=== PATIENT | female | born 1995 | race Caucasian/White ===

== ENCOUNTER 2018-08-08 08:00 | Inpatient (IN) ==
[2018-08-08] MEDS ORDERED: Metoclopramide 10 MG/2 ML VIAL IVP PRN (08:32)
[2018-08-08] MEDS ORDERED: Ondansetron 4 MG/2 ML VIAL IVP PRN (08:32)
[2018-08-08] MEDS ORDERED: Famotidine 20 MG/2 ML VIAL IVP PRN (08:32)
[2018-08-08] MEDS ORDERED: Naloxone 0.4 MG/ML INJ IVP PRN (08:32)
[2018-08-08] MEDS ORDERED: Ringers Solution, Lactated 1,000 ML IVC SCH (08:45)
[2018-08-08] MEDS ORDERED: Penicillin G Potassium 5,000,000 UNIT in 0.9 % Sodium Chloride Mini Bag 100 ML IVPB ONE (09:03)
[2018-08-08 09:19] LABS: Basophils % 0.1 %; Eosinophils # 0.1 K/mcL (0.0-0.6); Eosinophils % 1.5 %; Hematocrit 38.8 % (35.3-44.9); Hemoglobin 13.2 g/dL (11.5-15.4); Immature Granulocytes % 0.4 % (0-4); Lymphocytes # 1.9 K/mcL (0.6-4.6); Lymphocytes % 24.2 %; Mean Corpuscular Hemoglobin 32.4 pg (28.0-33.3); Mean Corpuscular Volume 95.1 fL (83.0-100.0); Mean Platelet Volume 11.9 fL (9.4-12.4); Monocytes # 0.5 K/mcL (0.0-1.3); Monocytes % 6.9 %; Neutrophils # 5.3 K/mcL (1.6-8.9); Platelet Count 195 K/mcL (140-400); Red Blood Count 4.08 M/mcL (3.82-4.97); Red Cell Distribution Width 12.4 % (11.5-14.5); Segmented Neutrophils % 66.9 %
--- NOTE | 2018-08-08 09:56 | OB/GYN History & Physical ---
Date of Encounter: 08/08/18 Time of Encounter: 09:54 Assessment and Plan (1) 40 weeks gestation of Current visit: Yes Status: Acute Admitted for induction of labor. (2) Group beta Strep positive Current visit: Yes Status: Acute PCN prophylaxis throughout labor (3) Smoking (tobacco) complicating , third trimester Current visit: Yes Status: Acute Offer cessation materials (4) NST (non-stress test) reactive Current visit: Yes Status: Acute FHR 130 bpm, moderate variability, +15x15 accels, no decels. History of Present Illness Chief complaint: Induction of labor at 40.4 weeks HPI: Ms. Collazo is a 22 year old female patient of the [facility] at 40w4d who presents today for induction of labor. She reports good movement, denies fluid leakage and bleeding. Plan of care discussed with patient and she agrees with PO Cytotec and possible de leon bulb induction. Blood type O+ GBS positive Varicella Non-Immune Rubella Immune T. Pall negative Past Med Surg Social Fam HX - Past Medical History Source: patient Medical history: no medical history Psychiatric history: anxiety - Past Surgical History Surgical History: other Additional surgical history: [place] teeth - Social History Smoking Status: Current every day smoker Packs per day: 0.5 Smokeless Tobacco Status: No Alcohol use: none Drug use: none Current living situation: Home - Independent Activity Level: Independent ambulation Recent Out of Country Travel Within the Last 8 Weeks: No Exposure or Possible Exposure to Illness During Travel: No - Family History Father Hx Family Genitourinary Disorders: Yes Obstetrical History - Pregnancies : 2 Para: 0 Term: 0 : 0 Ab's: 1 Livin Medications and Allergies Pepcid 10 mg PO DAILY 08/08/18 [History] Vitamins 1 tab PO DAILY 08/08/18 [History] Allergy/AdvReac Type Severity Reaction Status Date / Time No Known Allergies Allergy Verified 09/22/15 14:35 Exam - Constitutional Constitutional: well developed, well nourished, no acute distress - Neck Neck exam: full ROM - Lungs Respiratory exam: CTAB - Cardiovascular Cardiovascular exam: RRR, +S1, +S2 - Abdomen Abdomen: Present: bowel sounds normal, gravid, non tender - Extremities Extremities exam: full ROM, normal capillary refill, normal inspection, warm Deep Tendon Reflex Grade: 1+ Diminished - Cervix Dilation: 1 (1-2 per RN exam) Effacement: 80 Station: -2 - Uterus Uterus exam: Present: normal size Results Result Diagrams: 08/08/18 08:36 All other labs normal. - VTE Reasons for not Prescribing Prophylaxis: Treatment not Indicated - Low risk for VTE
[2018-08-08] MEDS ORDERED: miSOPROStol 25 MCG TABLET PO SCH (10:00)
[2018-08-08 11:08] LABS: Amphetamine Screen,Urine Negative ng/mL (Cutoff=1000); Barbiturate Screen,Urine Negative ng/mL (Cutoff=200); Benzodiazepines Screen,Urine Negative ng/mL (Cutoff=200); Cannabinoid Screen,Urine Negative ng/mL (Cutoff = 50); Cocaine Screen,Urine Negative ng/mL (Cutoff= 300); Opiate Screen,Urine Negative ng/mL (Cutoff=300); Phencyclidine Screen,Urine Negative ng/mL (Cutoff=25)
--- NOTE | 2018-08-08 11:25 | Anesthesia Evaluation PreOp ---
Date of Encounter: 08/08/18 Time of Encounter: 10:37 - Past History Planned Operation: [facility] Cardiac History: Denies any Significant Hx Pulmonary History: Smoker (1/2 pack per day) STATE TROOPER History: Denies Any Significant HX Other Medical History: Denies Any Significant HX Anesthesia History: No Prior Anesthetic Complications, Past Anesthesia (wisdom teeth) : Yes (40.4 weeks, ) Alcohol Use: none Drug use: none Medications and Allergies Pepcid 10 mg PO DAILY 08/08/18 [History] Vitamins 1 tab PO DAILY 08/08/18 [History] Allergy/AdvReac Type Severity Reaction Status Date / Time No Known Allergies Allergy Verified 09/22/15 14:35 - Meds/Allergy Pre-op Review Medications Reviewed: Yes Allergies Reviewed: Yes Beta Blockers on Current Med List: No Anesthesia Results - Labs 08/08/18 08:36 Anesthesia Exam O2 Sat Height 1.7 m Weight 110 kg bp 120/75 hr 80 Height: 67 Weight: 110 - HEENT Pupil (Motor): Pupils equal Mallampati: III Teeth: Normal Oral Opening: Greater than 3 (FROM) - STATE TROOPER LOC: Oriented STATE TROOPER Motor: Normal RUE, Normal LUE, Normal RLE, Normal LLE, Normal Face STATE TROOPER Sensory: Normal: RUE, LUE, RLE, LLE, Face - Cardiac Rhythm: Regular Murmur: None JVD: No Carotid Bruit: No - Pulmonary Breath Sounds: bilateral Clear Respiratory Effort: Symmetrical Anesthesia Assess/Plan ASA Score: 2 Modified [place] Scale for Level of Consciousness: Cooperative, oriented, and tranquil Anesthetic Plan: Regional Autologous Blood: No Monitoring Plan: Standard Monitors
--- NOTE | 2018-08-08 12:05 | OB Labor Progress Note ---
Date of Encounter: 08/08/18 Time of Encounter: 12:03 Labor Progress Note - Subjective Subjective: Patient resting in bed with minimal discomfort after Cytotec was given. Denies need for pain medication at this time. She is agreeable to placement of de leon bulb for induction. - Cervix Cervix: 1.5/80/-2 - Heart Tones Heart Tones: FHR 145 bpm, moderate variability, +15x15 accels, no decels. - [place]: Irregular ctx. - Interventions Interventions: SVE De Leon bulb placed, balloon filled with 50 mL sterile water. Patient tolerated with minimal discomfort. - Plan Plan: Continue induction as discussed with patient. Continue GBS prophylaxis AROM when appropriate Anticipate
[2018-08-08] MEDS: *HR* Nalbuphine 10 MG/ML AMPUL IVP PRN ×2 (13:31→16:59)
[2018-08-08] MEDS ORDERED: Oxytocin 20 units/ LR 1000 mL 20 UNIT/1,000 ML BAG IVC ONE (14:29)
[2018-08-08] MEDS ORDERED: Oxytocin 20 units/ LR 1000 mL 20 UNIT/1,000 ML BAG IVC SCH (14:30)
[2018-08-08] MEDS: Penicillin G Potassium 2,500,000 UNIT in 0.9 % Sodium Chloride 100 ML IVPB SCH ×2 (15:10→18:49)
--- NOTE | 2018-08-08 16:13 | OB Labor Progress Note ---
Date of Encounter: 08/08/18 Time of Encounter: 16:11 Labor Progress Note - Subjective Subjective: Patient coping well with contractions. Denies need for additional pain medication at this time. Aware she can have one more dose of Nubain. - Cervix Cervix: 5/90/-1 - Heart Tones Heart Tones: FHR 120 bpm, moderate variability, +15x15 accels, no decels. - [place]: 2-3 minutes - Interventions Interventions: SVE AROM for moderate amount of blood tinged fluid. - Plan Plan: Continue labor induction. Increase Pitocin as needed. Anticipate
--- NOTE | 2018-08-08 17:22 | OB Labor Progress Note ---
Date of Encounter: 08/08/18 Time of Encounter: 17:20 Labor Progress Note - Subjective Subjective: Patient coping well with contractions. Has now received her second dose of Nubain. - Cervix Cervix: 5/90/-1 - Heart Tones Heart Tones: FHR 120 bpm, moderate variability, no decels, no accels in the past 20 minutes. - [place] Dawn: 2-3 minutes - Interventions Interventions: SVE IUPC placed for accurate contraction monitoring. - Plan Plan: Continue increasing as needed. Current Pitocin at 4mu/min Anticipate Epidural if patient desires.
[2018-08-08] MEDS ORDERED: *HR* FentaNYL (PF) 100 MCG/2 ML VIAL ONE (17:26)
[2018-08-08] MEDS ORDERED: Lidocaine -MPF 1% 5 ML AMPUL ONE (17:26)
[2018-08-08] MEDS ORDERED: Bupivacaine-MPF 0.25% 10 ML VIAL ONE (17:26)
[2018-08-08] MEDS ORDERED: Epidural Premix (fent/bupiv) 110 ML EP ONE (17:51)
[2018-08-08] MEDS ORDERED: EPHEDrine 50 MG/ML VIAL IVP PRN (17:58)
[2018-08-08] MEDS ORDERED: Bupivacaine-MPF 0.25% 10 ML VIAL EP ONE (17:58)
[2018-08-08] MEDS ORDERED: *HR* FentaNYL (PF) 100 MCG/2 ML VIAL EP ONE (17:58)
[2018-08-08] MEDS ORDERED: Epidural Premix (fent/bupiv) 110 ML EP SCH (18:00)
--- NOTE | 2018-08-08 18:05 | Anesthesia Procedures ---
Date of Encounter: 08/08/18 Time of Encounter: 17:30 (Procedure end at 1805) Procedures: Anesthesia - Epidural/Spinal Patient ID/Chart reviewed: Yes Patient examined: Yes OB Eval: Gestational age: 40 OB Eval: : 2 OB Eval: Hx Para: 0 OB Eval: Contractions: Non-stressed pattern Consent Obtained: Yes Supplemental Oxygen: None/Room Air Supplemental Oxygen Rate (L/min): 2 Site Prep: Aseptic Technique Patient position: upright Local Anesthetic: Lidocaine 1% Amount of Local Anesthetic used: 3 Touhy Needle Gauge: 18 Touhy Needle Depth (cm): 7 Catheter Depth at Skin (cm): 12 Test Dose (1.5% Lido + Epi): Volume given (mls): 3 Test Dose Result: Negative Loading Dose: 0.25% Marcaine (mls): 6 Loading Dose: Fentanyl (mcg): 100 Loading Dose Administered: Thru Touhy Needle Infusion Med: 0.125% Bupivacaine w/ 2 mcg/ml Fentanyl Catheter Secured in Place: Tegaderm Interspace Used: L3-L4 Loss of Resistance (CHAKA): Yes Blood: No CSF: No Paresthesia: No
--- NOTE | 2018-08-08 21:25 | OB Labor Progress Note ---
Date of Encounter: 08/08/18 Time of Encounter: 20:24 Labor Progress Note - Subjective Subjective: Patient resting comfortably after epidural. Denies pain with contractions. - Cervix Cervix: 5.5/90/-2 - Heart Tones Heart Tones: FHR 110 bpm, moderate variability, +15x15 accels, no decels. - [place]: 2-3 minutes. MVU 150 - Interventions Interventions: SVE Position change frequently on peanut ball. - Plan Plan: Continue labor management Continue frequent position changes. Increase Pitocin to achieve MVU >200 Anticipate
[2018-08-08] MEDS ORDERED: Famotidine 20 MG/2 ML VIAL IVP ONE (21:56)
--- NOTE | 2018-08-09 00:40 | OB/GYN Procedure Note ---
Delivery - Delivery Date: 08/09/18 Provider: Luz Tavarez (Dr. Johnson in room for proctoring) Intrapartum events: none Delivery induction: de leon, misoprostol Delivery augmentation: rupture of membranes, pitocin Delivery monitor: external FHT, internal uterine Anesthesia: epidural Quantitated Blood Loss: 100 - Infant (s) A Infant Delivery Date: 08/09/18 Delivery Time: 00:16 Presentation: vertex Position: OA Route of delivery: Gender: Male Viability: Viable Weight Gram: 3180 kg at 1 minute: 8 at 5 mins: 8 Shoulder Dystocia: not encountered Specimens collected: cord blood Placenta: spontaneous Cord: 3 umbilical vessels - Repair Episiotomy: none Laceration Description: Labial, Superficial - Complications Delivery complications: none Delivery comments: Called to room for patient with increased pressure and wanting to push. Under maternal effort, spontaneous delivery of viable male infant weighing 3180 grams, apgars 8 & 8 at 1 and 5 minutes respectively. placed on maternal abdomen, cord clamped and cut by FOB after pulsation ceased. Spontaneous delivery of intact placenta, EBL 100 mL. Right labial and superficial lacerations noted to be hemostatic and not repaired. Mother and infant in kangaroo care for [address] Johnson present for entirety of delivery for proctoring. - Disposition Mom disposition: stable in LDR disposition: stable in LDR - Comments Comments: I was gowned and gloved for the procedure noted above for proctoring. Aura Johnson DO
[2018-08-09] MEDS ORDERED: Benzocaine/Menthol 56 GM AEROSOL SPRAY TP PRN (02:50)
[2018-08-09] MEDS ORDERED: Lanolin 7 G OINT...G. TP PRN (02:50)
[2018-08-09] MEDS ORDERED: Oxytocin 20 units/ LR 1000 mL 20 UNIT/1,000 ML BAG IVC SCH (02:50)
[2018-08-09] MEDS ORDERED: Acetaminophen 325 MG TABLET PO PRN (02:50)
[2018-08-09] MEDS ORDERED: Measles/Mumps/Rubella Vacc 0.5 ML VIAL SQ PRN (02:50)
[2018-08-09] MEDS: Prenatal Vit/FA 1 EACH TABLET PO SCH (08:01)
[2018-08-09] MEDS: Ibuprofen 600 MG TABLET PO PRN ×2 (08:01→16:10)
[2018-08-10] MEDS: Prenatal Vit/FA 1 EACH TABLET PO SCH (07:50)
[2018-08-10] MEDS: Ibuprofen 600 MG TABLET PO PRN (07:50)
--- NOTE | 2018-08-10 10:52 | OB/GYN Progress Note ---
Date of Encounter: 08/10/18 Time of Encounter: 09:55 - Assessment and Plan (1) Vaginal delivery Current Visit: Yes Status: Acute Meeting all day 1 milestones consult today Social work consult today Continue routine care Anticipate discharge home tomorrow Subjective - Subjective Principal diagnosis: s/p Interval history: Feeling well. OOB without dizziness. +perineal discomfort - using ice pack. Cramping minimal, using ibuprofen. Has been bottle feeding, would like to try breast-feeding today. Voiding without difficulty. Passing flatus, no BM yet. Tolerating regular diet. She does report excessive stress related to her social situation. She states that the baby's father and her fiance are not the same person and they are causing her to feel uncomfortable. She is very tearful during our interview. Patient reports: appetite normal, voiding normally, pain well controlled, ambulating normally [place]: doing well, bottle feeding Objective - Latest Vital Signs Latest vital signs: Vital Signs Temp Pulse Pulse Resp BP Pulse Ox 08/10/18 08:05 98.1 F 67 16 118/79 98 08/09/18 20:15 98.1 F 75 16 117/72 97 08/09/18 16:25 97.8 F 74 74 16 118/74 98 Intake and Output 08/09/18 08/10/18 08/10/18 23:59 07:59 15:59 Intake Total 360 / 360 Output Total 1825 / 1825 Balance -1465 / -1465 Intake: Oral 360 / 360 Output: Urine 1825 / 1825 - Exam Lungs: bilateral: normal Chest: Normal S1, Normal S2 Extremities: Present: normal Abdomen: Present: normal appearance, soft Uterus: Present: normal, firm Uterus Position: 1 Finger Below Umbilicus, Midline
[2018-08-11 08:58] VITALS: BP 136/87
--- NOTE | 2018-08-11 10:14 | Discharge Summary ---
Date of Encounter: 08/11/18 Time of Encounter: 10:14 - Discharge Diagnosis (1) Vaginal delivery Priority: Primary Status: Acute Comments: Status post vaginal delivery day 1. Doing well and meeting milestones Lochia light Good appetite voiding and stooling Pain is currently controlled Mood is labile, currently teary eyed. Denies suicidal ideation or homicidal ideation. Admits to anxiety. Awaiting social work recs. No issues Discussed safe spacing and control She will follow up in 4 weeks Discharge home today pending social work consult - Discharge Medications Prescriptions: RX: Acetaminophen [Tylenol] 650 mg PO Q6HR PRN #30 tablet PRN Reason: Mild Pain RX: Ibuprofen [Motrin] 600 mg PO Q6HR PRN #30 tablet PRN Reason: Cramping RX: Docusate [Colace] 100 mg PO BID #30 capsule RX: Ferrous Sulfate 325 mg PO DAILY #90 tablet Home Medications: Pepcid 10 mg PO DAILY 08/08/18 [History] Vitamins 1 tab PO DAILY 08/08/18 [History] RX: Acetaminophen [Tylenol] 650 mg PO Q6HR PRN #30 tablet 08/11/18 [Rx] RX: Benzocaine/Menthol [place] [Dermoplast [place]] 1 appl TP QID PRN #0 aerosol 08/11/18 [Rx] RX: Docusate [Colace] 100 mg PO BID #30 capsule 08/11/18 [Rx] RX: Ferrous Sulfate 325 mg PO DAILY #90 tablet 08/11/18 [Rx] RX: Ibuprofen [Motrin] 600 mg PO Q6HR PRN #30 tablet 08/11/18 [Rx] RX: Lanolin [Lansinoh] 1 appl TP TID PRN oint...g. 08/11/18 [Rx] Allergies/Adverse Reactions: Allergy/AdvReac Type Severity Reaction Status Date / Time No Known Allergies Allergy Verified 09/22/15 14:35 Data Procedures and tests throughout hospitalization: Laboratory Tests 08/08/18 08/08/18 08/08/18 08:36 08:36 08:50 WBC 7.9 RBC 4.08 Hgb 13.2 Hct 38.8 MCV 95.1 MCH 32.4 MCHC 34.0 RDW 12.4 Plt Count 195 MPV 11.9 Immature Gran % 0.4 Seg Neutrophils % 66.9 Lymphocytes % 24.2 Monocytes % 6.9 Eosinophils % 1.5 Basophils % 0.1 Neutrophils # 5.3 Lymphocytes # 1.9 Monocytes # 0.5 Eosinophils # 0.1 Basophils # 0.0 Urine Opiates Screen Negative Ur Barbiturates Screen Negative Ur Phencyclidine Scrn Negative Ur Amphetamines Screen Negative U Benzodiazepines Scrn Negative Urine Cocaine Screen Negative U Marijuana (THC) Screen Negative Ur Drug Screen Interp See Below Hep Bs Antigen Nonreactive Date of admission: 08/08/18 08:19 Primary care physician: Naidr Law MD Consults: 08/09/18 02:50 Consult to Interactive Media Director [CONS] Routine Comment: Vaginal delivery, consult needed Consult to Process Analyst [CONS] Routine Reason for SW Consult: Previous Heroin use. Discharging clinician: Bhumika Hazel Anticipated date of discharge: 08/11/18 - Patient Status Disposition: Home, Self-Care Condition: Good Functional capacity at discharge: independent ambulation Overall status at discharge: patient is progressing back to baseline - Discharge Instructions Follow Up With: Nadir Law MD [Primary Care Provider] - Pastora Gould CNM [Advanced Practice Nurse] - - Diet and Activity Activity: resume usual activities as tolerated Diet: advance to your usual diet Hospital Course Reason for admission: active labor Delivery: Episiotomy: none Laceration: none Other procedures: none complications: none Discharge diagnosis: IUP at term delivered [place] baby: male Hospital course: - Delivery Date: 08/09/18 Provider: Luz Tavarez (Dr. Johnson in room for proctoring) Intrapartum events: none Delivery induction: de leon, misoprostol Delivery augmentation: rupture of membranes, pitocin Delivery monitor: external FHT, internal uterine Anesthesia: epidural Quantitated Blood Loss: 100 - Infant (s) Infant A Delivery Date: 08/09/18 Delivery Time: 00:16 Presentation: vertex Position: OA Route of delivery: Gender: Male Viability: Viable Weight Gram: 3180 kg at 1 minute: 8 at 5 mins: 8 Shoulder Dystocia: not encountered Specimens collected: cord blood Placenta: spontaneous Cord: 3 umbilical vessels Time spent discussing smoking cessation with patient: 3 to 10 minutes Time Attestation: Total time spent providing and/or coordinating discharge services: Time Spent: Greater than 30 minutes Exam - Constitutional Vitals: Temp Pulse Resp BP Pulse Ox 99.0 F 89 14 136/87 98 08/11/18 08:57 08/11/18 08:57 08/11/18 08:57 08/11/18 08:57 08/11/18 08:57 General appearance IM: A&O X 3, no acute distress - Respiratory Respiratory exam: Present: CTAB. Absent: rales, respiratory distress, rhonchi, wheezes - Cardiovascular Cardiovascular exam IM: Present: RRR, +S1, +S2. Absent: irregular rhythm - GI/Abdominal GI/Abdominal exam IM: normal bowel sounds Incision: normal, dry, intact - Rectal Rectal exam: deferred - External exam: normal external exam Uterine Tone: Firm Uterus Position: At Umbilicus - Extremities Exam Extremities exam IM: Present: radial pulses palpable and symmetrical. Absent: calf tenderness, tenderness - Neurological Exam Neurological exam: normal gait, oriented X3 - Psychiatric Additional comments: Teary eyed, labile - Attending Attestation I examined this patient and my medical decision-making was reviewed with the Resident Physician. I agree with the documented findings, disposition and treatment plan as described. Ambar Gould CNM
[2018-08-11] MEDS: Prenatal Vit/FA 1 EACH TABLET PO SCH (10:19)
== END 2018-08-11 15:49 | disposition home or self-care (01) | DRG 560 ==
LOC: 1NENULAB 08:19 → 1NENUOBS 08-09 02:49
PROVIDERS: ADMIT Obstetrics & Gynecology; ATTEND Obstetrics & Gynecology